=== PATIENT | male | born 1960 | race Caucasian/White ===

== ENCOUNTER 2016-12-18 05:26 | Emergency (ER) | payer OTHER ==
--- NOTE | 2016-12-18 06:29 | DIAGNOSTIC IMAGING REPORT ---
PROCEDURE: XR CHEST 1 VIEW INDICATION: Shortness of breath. TECHNIQUE: Portable AP view (0545 hours). COMPARISON: Compared to chest x-ray on 11/28/2009. FINDINGS: Lungs are clear. Heart and mediastinum are normal. Thorax is normal. IMPRESSION: 1. Negative chest.
--- NOTE | 2016-12-18 06:51 | ED ORDER SUMMARY ---
..... Patient: THO BRADFORD OrderSheet [facility] VisitID: [id number] [place] [address] 56y, M Registration Date/Time: 12/18/2016 ORDER SHEET Weight: 77.1 kg (stated) Allergies: No Known Drug Allergy GENERAL ORDERS: Chest 1V Urgent (05:34 12/18/2016 Charlene Templeton) (Ack 5:38 AMcQuoid ER Tech1) (5:55 GUnger) Asbestos Coverer (Continuous) (Respiratory Distress) (05:34 12/18/2016 Charlene Templeton) (Ack 5:38 AMcQuoid ER Tech1) (5:39 ShabanaDeCandidaa R.N.) CBC w Diff Urgent (05:12/18/2016 Charlene Templeton) (Ack 5:38 AMcQuoid ER Tech1) (Cancelled: Patient Refusal6:15 HSoule) BMP Urgent (05:12/18/2016 Charlene Templeton) (Ack 5:38 AMcQuoid ER Tech1) (Cancelled: Patient Refusal6:15 HSoule) Pulse oximeter (05:12/18/2016 Charlene Templeton) (5:35 HSoule) MEDICATION ORDERS: DuoNeb Neb Tx 1 unit dose (NOW) (05:12/18/2016 Charlene Templeton) (Ack 5:35 HSoule) (5:52 HSoule) Prednisone PO 60 mg (NOW) (05:47 12/18/2016 Charlene Templeton) (Ack 5:52 HSoule) (6:02 HSoule) Azithromycin PO 500 mg (NOW) (05:47 12/18/2016 Charlene Templeton) (Ack 5:52 HSoule) (6:02 HSoule) Albuterol Neb Tx 5 mg (once now) (06:14 12/18/2016 Charlene Templeton) (Ack 6:15 HSoule) (6:18 HSoule) IV FLUIDS: Solu-MEDROL IV 125 mg (NOW) (05:35 12/18/2016 Charlene Templeton) (Ack 5:35 HSoule) (Cancelled: Duplicate Order5:47 Charlene Templeton) IV Saline Lock (05:35 12/18/2016 Charlene Templeton) (Ack 5:35 HSoule) (Cancelled: Patient Refusal5:51 HSoule) ORDER SHEET NOTES: [Electronically signed by April Lauren R.N. (07:37 12/18/2016)] [Electronically signed by Phill Musa Dr. (06:40 12/20/2016)] [Electronically locked/signed by April Lauren R.N. (07:37 12/18/2016)]
--- NOTE | 2016-12-18 06:51 | ED CLINICAL REPORT ---
Clinical Report - Physicians/Mid Levels [facility] [address] [place] [address] 12/18/2016 5:26 Patient: THO BRADFORD Time Seen: 0535. Arrived- By private vehicle. Historian- patient. HISTORY OF PRESENT ILLNESS Chief Complaint: HISTORY OF CHRONIC OBSTRUCTIVE PULMONARY DISEASE. This started today and is still present. It was abrupt in onset and has been constant but is not gone now. The dyspnea is described as moderate and is worsened by exertion. The patient has had a cough. Similar symptoms previously: Many times (hx COPD). Recent medical care: The patient was seen recently by a health care provider (Selvin). REVIEW OF SYSTEMS No skin rash. All systems otherwise negative, except as recorded above. PAST HISTORY See nurses notes. Medications: Ventolin HFA Inhalation. Allergies: No Known Drug Allergy. SOCIAL HISTORY Never smoker. No alcohol use or drug use. Recent travel. Is a local resident. ADDITIONAL NOTES The nursing notes have been reviewed. PHYSICAL EXAM Vital Signs: 12/18/2016 05:29 BP: 127/82. HR: 105. RR: 26. O2 saturation: 95%. Temp: 99.1 F. Pain level now: 8/10. Blood pressure normal. Oxygen saturation normal. Appearance: Alert. Eyes: Pupils equal, round and reactive to light. Eyes normal inspection. ENT: Ears normal. Nose normal. Pharynx normal. Uvula midline. Neck: Normal inspection. No jugular venous distention. Neck supple. CVS: Normal heart rate and rhythm. Heart sounds normal. Pulses normal. Respiratory: Mild respiratory distress. Expiratory moderate bilateral wheezes present. No rales or rhonchi. Abdomen: Soft and nontender. No organomegaly. Skin: Skin warm and dry. Normal skin color. No rash. Normal skin turgor. Extremities: Extremities exhibit normal ROM. No lower extremity edema. LABS, X-RAYS, AND EKG Chest X-ray: Normal heart size. Mediastinum normal. Great vessels normal. No infiltrate. Views: PA. Technique: good. The X-rays were independently viewed by me and interpreted contemporaneously by me. A comparison with prior films reveals that the findings are unchanged. PROGRESS AND PROCEDURES Course of Care: The patient is a pleasant 56-year-old male with past medical history significant for COPD presents for evaluation of dyspnea. The patient is wheezing on examination. Patient reports that this episodes are similar to the COPD episodes that he has had in the past. Patient reports no other concerning symptoms at this time. Patient be evaluated with chest x-ray. Because of the patient's wheezing, recommended that the patient obtain IV access for medications and lab draw. Patient reports that he does not want to have the IV despite the benefits of having one. Patient is agreeable to the risks of not having an IV. Medications for the COPD exacerbation as been provided. Chest x-rays been ordered. Patient will likely require antibiotics. The patient is workup was markable for the findings above. Chest x-ray does not show any acute consolidations. Patient will be givenazithromycin for his COPD exacerbation. Patient also has prednisone already available to him. Patient reportsno other concerns. After several breathing treatments, patient reports significant improvement with his breathing. Lungs are clear to auscultation bilaterally. Patient in no acute respiratory distress. Mild tachycardia noted because of the albuterol. Do not fill patient is admitted to the hospital require further emergency department workup/evaluation. Discussed the patient is workup here in the emergency department including diagnosis, home care, follow-up, and return precautions. All questions have been answered. The patient expressed understanding of these instructions and was agreeable to them. Disposition: Discharged. Condition: good. CLINICAL IMPRESSION 12/18/2016 06:18 BP: 130/80. HR: 105. RR: 22. O2 saturation: 98%. Blood pressure normal. Oxygen saturation normal. Acute exacerbation of COPD. INSTRUCTIONS (Continue taking your prednisone and albuterol as prescribed.). Warnings: GENERAL WARNINGS: Return or contact your physician immediately if your condition worsens or changes unexpectedly, if not improving as expected, or if other problems arise. SPECIFICALLY, return if you develop chest pain, fever, productive cough, difficulty breathing, excessive fatigue, a fluttering sensation in the chest or fainting. Your Current Medications: CONTINUE TAKING THE FOLLOWING MEDICATIONS: Ventolin HFA Inhalation. Prescription Medications: Zithromax Z-Vazquez: Take according to package instructions. No refills. Substitution is permissible. Follow-up: Return to the emergency department as needed. Follow up with your doctor in three days. Reason for referral: recheck today's concerns. Summary of care provided to patient via paper. Screening today revealed the patient's blood pressure to be in the normal range. The patient should follow up with a primary care provider for blood pressure management. Understanding of the discharge instructions verbalized by patient. (Electronically signed by Phill Musa Dr. 12/20/2016 6:40)
--- NOTE | 2016-12-18 06:51 | ED NURSING NOTES ---
Clinical Report - Nurses [facility] [address] [place] [address] 12/18/2016 5:26 [id number] TRI[facility] Triage time 05:Dec 18 2016. Chief Complaint: SHORTNESS OF BREATH. 05:32 12/18/16. --05:32 Queenie Kramer 05:29 12/18/16. BP: 127/82. HR: 105. RR: 26. O2 saturation: 95% on room air. Temp: 99.1 F. Pain level now: 05/05. --05:32 Queenie Kramer SEPSIS SCREEN: Sepsis Screen: negative. Negative (no infection suspected/documented). SHAYY COMA SCORE: Shayy Coma Scale: 15- eyes open spontaneously (4); best verbal response- oriented x 4 (5); best motor response- obeys commands (6). --05:32 Queenie Kramer. Weight: 77.1 kg stated. Height/Length: 66 inches Per Patient. BMI: 27.4. --05:30 Queenie Kramer. Medications Ventolin HFA Inhalation. --05:30 Queenie Kramer. Allergies No Known Drug Allergy. --05:31 Queenie Kramer. Medication/allergy information source: the patient. --05:32 Queenie Kramer. History Arrived by private vehicle. Historian: patient. Unaccompanied. Primary physician (none). This started last night. ( Patient reports a history of COPD. He states all night he was short of breath. He reports using his ventolin with no relief.). He has had a cough. PAST MEDICAL HX: Immunizations: up-to-date. SOCIAL HX: Light tobacco smoker- less than 1/2 a pack per day. No alcohol use or drug use. No infectious disease exposure. ABUSE ASSESSMENT: No report of abuse. FALL RISK ASSESSMENT: Fall risk assessment completed. No fall risk identified. NUTRITIONAL RISK ASSESSMENT: The nutritional risk assessment revealed no deficiencies. FUNCTIONAL ASSESSMENT: Functional assessment: no impairments noted. LEARNING NEEDS ASSESSMENT: The learning needs assessment revealed no barriers. SKIN INTEGRITY ASSESSMENT: Skin integrity risk assessment completed. No skin integrity risk identified. --05:32 Queenie Kramer. PROBLEMS: COPD - Chronic Obstructive Pulmonary Disease. Pancreatic Cancer. --05:32 Queenie Kramer. ADDITIONAL SURGERIES: Back Surgery. Knee Surgery. --05:32 Queenie Kramer. PHYSICAL ASSESSMENT GENERAL / NEURO / PSYCH: Alert. Oriented X 4. Appears in distress. RESPIRATORY: Moderate respiratory distress. The patient can speak a few words at a time. Cough. CVS: Cardiac rhythm: sinus tachycardia. SKIN: Skin is warm and dry. --05:33 Queenie Kramer. NURSING PROGRESS NOTES 05:33 12/18/16. Monitoring of patient in place. Head of bed elevated. Reassurance given to the patient. Two patient identifiers checked. Call light placed in reach. Side rails up. Bed placed in lowest position. Brakes of bed on. Patient ready for evaluation- chart flagged and ED physician notified. --05:33 Queenie Kramer ( RT called to bedside). --05:33 Queenie Kramer ( Patient refusing gown, nursing interventions, IV or blood draw.). --05:40 Queenie Kramer 05:51 12/18/2016 Duoneb (Ipratropium-Albuterol) Neb TX Nebulizer 1 unit dose given. Given by the respiratory therapist. Allergies verified and confirmed 5 rights. --05:52 Queenie Kramer ( Radiology at bedside). --05:52 Queenie Kramer 05:52 12/18/2016 Prednisone PO Tablets 60 mg given. Allergies verified and confirmed 5 rights. --06:02 Queenie Kramer 05:52 12/18/2016 Azithromycin PO Tablets 500 mg given. Allergies verified and confirmed 5 rights. --06:02 Queenie Kramer 06:18 12/18/2016 Albuterol Neb TX Nebulizer 5 mg given. Given by the nurse. Allergies verified and confirmed 5 rights. --06:18 Queenie Kramer 06:18 12/18/16. BP: 130/80. HR: 105. RR: 22. O2 saturation: 98%. --06:20 Queenie Kramer. DISPOSITION / DISCHARGE 07:03 12/18/16. RR: 18. Additional comments: re d/c v/s pt. declines became agitated with bp cuff and states, "thats enough of this shit," then ripped of the cuff. . --07:36 April Lauren R.N. 07:03. Condition at departure: stable. No learning barriers present. Discharge instructions provided and reviewed with the patient. Reviewed medication(s) side effects, precautions, dosing and course information. Prescription(s) given to the patient. Reviewed referral to family practice for followup. Patient verbalized understanding. Written instructions provided in Serbian. --07:37 April Lauren R.N. Departure time: 702. The patient was discharged home and unaccompanied at time of discharge. He left the Emergency Department ambulatory. --07:37 April Lauren R.N. Locked/Released at 12/18/2016 7:37 by April Lauren R.N.
--- NOTE | 2016-12-18 06:51 | ED ORDER SUMMARY ---
..... Patient: THO BRADFORD OrderSheet [facility] VisitID: [id number] [place] [address] 56y, M Registration Date/Time: 12/18/2016 ORDER SHEET Weight: 77.1 kg (stated) Allergies: No Known Drug Allergy GENERAL ORDERS: Chest 1V Urgent (05:34 12/18/2016 Charlene Templeton) (Ack 5:38 AMcQuoid ER Tech1) (5:55 GUnger) Protective Service Specialist (Continuous) (Respiratory Distress) (05:34 12/18/2016 Charlene Templeton) (Ack 5:38 AMcQuoid ER Tech1) (5:39 ShabanaDeCandidaa R.N.) CBC w Diff Urgent (05:12/18/2016 Charlene Templeton) (Ack 5:38 AMcQuoid ER Tech1) (Cancelled: Patient Refusal6:15 HSoule) BMP Urgent (05:12/18/2016 Charlene Templeton) (Ack 5:38 AMcQuoid ER Tech1) (Cancelled: Patient Refusal6:15 HSoule) Pulse oximeter (05:12/18/2016 Charlene Templeton) (5:35 HSoule) MEDICATION ORDERS: DuoNeb Neb Tx 1 unit dose (NOW) (05:12/18/2016 Charlene Templeton) (Ack 5:35 HSoule) (5:52 HSoule) Prednisone PO 60 mg (NOW) (05:47 12/18/2016 Charlene Templeton) (Ack 5:52 HSoule) (6:02 HSoule) Azithromycin PO 500 mg (NOW) (05:47 12/18/2016 Charlene Templeton) (Ack 5:52 HSoule) (6:02 HSoule) Albuterol Neb Tx 5 mg (once now) (06:14 12/18/2016 Charlene Templeton) (Ack 6:15 HSoule) (6:18 HSoule) IV FLUIDS: Solu-MEDROL IV 125 mg (NOW) (05:35 12/18/2016 Charlene Templeton) (Ack 5:35 HSoule) (Cancelled: Duplicate Order5:47 Charlene Templeton) IV Saline Lock (05:35 12/18/2016 Charlene Templeton) (Ack 5:35 HSoule) (Cancelled: Patient Refusal5:51 HSoule) ORDER SHEET NOTES: [Electronically signed by April Lauren R.N. (07:37 12/18/2016)] [Electronically signed by Phill Musa Dr. (06:40 12/20/2016)] [Electronically locked/signed by April Lauren R.N. (07:37 12/18/2016)]
--- NOTE | 2016-12-20 06:40 | ED MED RECONCILIATION SUMMARY ---
Patient: THO BRADFORD Medication Reconciliation Report [facility] VisitID: [id number] [place] [address] 56y, M Registration Date/Time: 12/18/2016 Weight: 77.1 kg Height/Length: 66 in. BMI: 27.4 ALLERGIES: No Known Drug Allergy The patient's Home Medications are listed below: CONTINUE TAKING THE FOLLOWING MEDICATIONS: Ventolin HFA Inhalation The source(s) of the original Home Medication information: patient The following Medications were given to the patient in the Emergency Department: Duoneb [Neb Tx] Neb TX 1 unit dose, administered: 12/18/2016 5:51:00 AM Prednisone [PO] PO 60 mg, administered: 12/18/2016 5:52:00 AM Azithromycin [PO] PO 500 mg, administered: 12/18/2016 5:52:00 AM Albuterol [Neb Tx] Neb TX 5 mg, administered: 12/18/2016 6:18:00 AM The following Medications were prescribed to the patient: Zithromax Z-Vazquez: Take according to package instructions. No refills. Substitution is permissible. -- Phill Musa Dr.
--- NOTE | 2016-12-20 06:40 | ED MAR SUMMARY ---
..... Medication Administration Record [facility] [address] [place] [address] Patient: THO BRADFORD Visit ID: [id number] 56y, M Weight: 77.1 kg Height/Length: 66 in BMI: 27.4 ALLERGIES: No Known Drug Allergy Given 05:51 12/18/2016 Queenie Kramer, Medication Administered: DUONEB [NEB TX] (IPRATROPIUM-ALBUTEROL), Dose: 1 unit dose Nebulizer Neb TX. Medication Ordered: DuoNeb Neb Tx 1 unit dose (NOW). Given 05:12/18/2016 Queenie Kramer, Medication Administered: PREDNISONE [PO], Dose: 60 mg Tablets PO. Medication Ordered: Prednisone PO 60 mg (NOW). Given 05:12/18/2016 Queenie Kramer, Medication Administered: AZITHROMYCIN [PO], Dose: 500 mg Tablets PO. Medication Ordered: Azithromycin PO 500 mg (NOW). Given 06:18 12/18/2016 Queenie Kramer, Medication Administered: ALBUTEROL [NEB TX], Dose: 5 mg Nebulizer Neb TX. Medication Ordered: Albuterol Neb Tx 5 mg (once now).
--- NOTE | 2016-12-20 06:40 | ED DISCHARGE INSTRUCTIONS ---
Patient: THO BRADFORD General Instructions [facility] VisitID: [id number] [place] [address] 56y, M Registration Date/Time: 12/18/2016 12/18/2016 06:18 BP: 130/80. HR: 105. RR: 22. O2 saturation: 98%. Blood pressure normal. Oxygen saturation normal. Acute exacerbation of COPD. INSTRUCTIONS (Continue taking your prednisone and albuterol as prescribed.). Warnings: GENERAL WARNINGS: Return or contact your physician immediately if your condition worsens or changes unexpectedly, if not improving as expected, or if other problems arise. SPECIFICALLY, return if you develop chest pain, fever, productive cough, difficulty breathing, excessive fatigue, a fluttering sensation in the chest or fainting. Your Current Medications: CONTINUE TAKING THE FOLLOWING MEDICATIONS: Ventolin HFA Inhalation. Prescription Medications: Zithromax Z-Vazquez: Take according to package instructions. No refills. Substitution is permissible. Follow-up: Return to the emergency department as needed. Follow up with your doctor in three days. Reason for referral: recheck today's concerns. Summary of care provided to patient via paper. Screening today revealed the patient's blood pressure to be in the normal range. The patient should follow up with a primary care provider for blood pressure management. Understanding of the discharge instructions verbalized by patient. ADDITIONAL INFORMATION COPD Flare Both emphysema and chronic bronchitis are forms of chronic obstructive pulmonary disease (COPD). It is most often caused by many years of smoking tobacco. Many things can make your lung disease suddenly get worse. These causes include the common cold, pneumonia, acute bronchitis, missing doses of your regular breathing medicines, or being around smoke, dust, or other air pollutants. A COPD flare may last 7 to 14 days. Your doctor may prescribe medicineto relax your airways and prevent wheezing. Your doctor may also prescribe antibiotics if he or she thinks you havea bacterial infection. Prednisone can helpease inflammation in a severe attack. Home care Here are things you can do at home: Drink lots of water or other fluids (at least 10 glasses a day) during an attack. This will loosen lung secretions and make it easier to breathe. If you have heart or kidney disease, check with your doctor before you drink extra amounts of fluids. Take prescribed medicine exactly at the times advised. If you have a hand-held inhaler or aerosol breathing medicine, don't use it more than once every 4 hours, unless your doctor tells you to. If you were givenan antibiotic or prednisone, take all of the medicine even if you are feeling better after a few days. Don't smoke. Avoid being aroundthe smoke of others. If you were given an inhaler, use it exactly as directed. If you need to use it more often than prescribed, your condition may be getting worse. Call your doctor. Follow-up care Follow up with your health care provider.If you are 65 or older or have chronic asthma or COPD, you should get a single dose of the pneumococcal vaccine and aflu shot each year. You may need a second dose of the pneumococcal vaccine if you had the first dose at a younger age. Your health care provider will let you know if you need a second dose. For all other people, the usual dose for the pneumococcal vaccine is 1 or 2 shots. Yourprovider can discuss this with you. When to seek medical care Get prompt medical attention ifany of these occur: Increased wheezing or shortness of breath Need to use your inhalers more often than usual without relief Fever of 100.4F(38C) or higher, or as directed by your health care provider Coughing up lots of dark-colored or bloody sputum (mucus) Chest pain with each breath You do not start to improve within 24 hours You have been given the following additional information: COPD Flare (Electronically signed by Phill Musa Dr. 12/20/2016 6:40)
--- NOTE | 2016-12-20 06:40 | ED MED RECONCILIATION SUMMARY ---
Patient: THO BRADFODR Medication Reconciliation Report [facility] VisitID: [id number] [place] [address] 56y, M Registration Date/Time: 12/18/2016 Weight: 77.1 kg Height/Length: 66 in. BMI: 27.4 ALLERGIES: No Known Drug Allergy The patient's Home Medications are listed below: CONTINUE TAKING THE FOLLOWING MEDICATIONS: Ventolin HFA Inhalation The source(s) of the original Home Medication information: patient The following Medications were given to the patient in the Emergency Department: Duoneb [Neb Tx] Neb TX 1 unit dose, administered: 12/18/2016 5:51:00 AM Prednisone [PO] PO 60 mg, administered: 12/18/2016 5:52:00 AM Azithromycin [PO] PO 500 mg, administered: 12/18/2016 5:52:00 AM Albuterol [Neb Tx] Neb TX 5 mg, administered: 12/18/2016 6:18:00 AM The following Medications were prescribed to the patient: Zithromax Z-Vazquez: Take according to package instructions. No refills. Substitution is permissible. -- Phill Musa Dr.
--- NOTE | 2016-12-20 06:40 | ED MAR SUMMARY ---
..... Medication Administration Record [facility] [address] [place] [address] Patient: THO BRADOFRD Visit ID: [id number] 56y, M Weight: 77.1 kg Height/Length: 66 in BMI: 27.4 ALLERGIES: No Known Drug Allergy Given 05:51 12/18/2016 Queenie Kramer, Medication Administered: DUONEB [NEB TX] (IPRATROPIUM-ALBUTEROL), Dose: 1 unit dose Nebulizer Neb TX. Medication Ordered: DuoNeb Neb Tx 1 unit dose (NOW). Given 05:12/18/2016 Queenie Kramer, Medication Administered: PREDNISONE [PO], Dose: 60 mg Tablets PO. Medication Ordered: Prednisone PO 60 mg (NOW). Given 05:12/18/2016 Queenie Kramer, Medication Administered: AZITHROMYCIN [PO], Dose: 500 mg Tablets PO. Medication Ordered: Azithromycin PO 500 mg (NOW). Given 06:18 12/18/2016 Queenie Kramer, Medication Administered: ALBUTEROL [NEB TX], Dose: 5 mg Nebulizer Neb TX. Medication Ordered: Albuterol Neb Tx 5 mg (once now).
== END 2016-12-18 07:03 | disposition home or self-care (01) ==
LOC: ED SRH 05:26
DX: J44.1 Chronic obstructive pulmonary disease with (acute) exacerbation (principal)